=== PATIENT | female | born 1980 | race African-American/Black ===

== ENCOUNTER 2019-01-14 06:05 | Emergency (ER) | payer OTHER ==
[2019-01-14] MEDS ORDERED: Albuterol/Ipratropium NEB.SOL* Albuterol 2.5 MG/Ipratropium 0.5 MG 3 ML INH ONE (06:26)
[2019-01-14 06:55] LABS: Hematocrit 33 % (35-47); Hemoglobin 11.4 g/dL (12.0-16.0); Mean Corpuscular HGB Conc 34 g/dL (31-36); Mean Corpuscular Hemoglobin 33 pg (27-31); Mean Corpuscular Volume 96 fL (80-97); Mean Platelet Volume 8.9 fL (7.4-10.4); Platelet Count 288 10^3/uL (150-450); Red Blood Count 3.47 10^6 /uL (3.70-4.87); Red Cell Distribution Width 12 % (10-15); White Blood Count 5.5 10^3/uL (3.5-10.8)
[2019-01-14 07:07] LABS: ALT 17 U/L (7-52); AST 28 U/L (13-39); Albumin 3.9 g/dL (3.2-5.2); Albumin/Globulin Ratio 1.3 (1-3); Alkaline Phosphatase 52 U/L (34-104); Anion Gap 5 mmol/L (2-11); BUN/Creatinine Ratio 11.7 (8-20); Blood Urea Nitrogen 9 mg/dL (6-24); C Reactive Protein < 1.00 mg/L (<8.01); CO2 Carbon Dioxide 26 mmol/L (22-32); Calcium 9.3 mg/dL (8.6-10.3); Chloride 107 mmol/L (101-111); EGFR African American 101.5 (>60); EGFR Non-African American 83.9 (>60); Globulin 2.9 g/dL (2-4); Glucose 97 mg/dL (70-100); Potassium 3.9 mmol/L (3.5-5.0); Sodium 138 mmol/L (135-145); Total Protein 6.8 g/dL (6.4-8.9)
[2019-01-14] MEDS ORDERED: predniSONE TAB* 50 MG PO ONE (07:47)
[2019-01-14] MEDS ORDERED: Bacitracin OINTMENT* 0.5% 0.5 oz TUBE TOPICAL ONE (07:51)
[2019-01-14 08:14] VITALS: BP 133/69
--- NOTE | 2019-01-14 08:34 | ED ---
Respiratory - HPI Summary HPI Summary: This patient is a 38-year-old female who presents to the ED with shortness of breath 2 days. Patient states she has a history of asthma and takes rescue inhaler daily. She states despite using her rescue inhaler, she does not feel her shortness of breath has improved. She denies any wheezing. Denies any cough or congestion. Denies any cough with production, fevers, sweats, chills. She states she is in no respiratory distress, but feels a mild shortness of breath. She does endorse some "chest tightness". She denies any chest pain or radiation of chest pain. She denies any cardiac history. She states she has been otherwise well. She has used Advair in the past with good relief, but does not have a prescription currently. - History of Current Complaint Chief Complaint: EDShortnessOfBreath Stated Complaint: ASTHMA PER PT Time Seen by Provider: 01/14/19 06:26 Hx Obtained From: Patient Onset/Duration: Sudden Onset Timing: Constant Pain Intensity: 0 Character: Wheezing Sputum Amount: None Sputum Color: Clear Aggravating Factor(s): Nothing Alleviating Factor(s): Nothing Associated Signs and Symptoms: Negative - Allergy/Home Medications Allergies/Adverse Reactions: Allergies Allergy/AdvReac Type Severity Reaction Status Date / Time latex Allergy Hives Verified 01/14/19 06:07 Sulfa (Sulfonamide Allergy Hives Verified 01/14/19 06:07 Antibiotics) Home Medications: Home Medications Albuterol HFA INHALER* 2 puff INH Q6HR PRN 01/14/19 [History Confirmed 01/14/19] PMH/Surg Hx/FS Hx/Imm Hx Previously Healthy: Yes Respiratory History: Reports: Hx Asthma - Immunization History Hx Pertussis Vaccination: No Immunizations Up to Date: Yes Infectious Disease History: No Infectious Disease History: Denies: Traveled Outside the [place] in Last 30 Days - Social History Occupation: Employed Full-time Lives: With Family Alcohol Use: Occasionally Hx Substance Use: No Substance Use Type: Reports: None Hx Tobacco Use: No Smoking Status (MU): Never Smoked Tobacco Review of Systems Constitutional: Negative Negative: Chills, Fatigue, Skin Diaphoresis Positive: Chest Pain. Negative: Palpitations Positive: Shortness Of Breath. Negative: Cough Genitourinary: Negative Positive: no symptoms reported, see HPI Negative: Arthralgia, Myalgia Skin: Negative Neurological: Negative All Other Systems Reviewed And Are Negative: Yes Physical Exam Triage Information Reviewed: Yes Vital Signs On Initial Exam: Initial Vitals Temp Pulse Resp BP Pulse Ox 97.6 F 68 20 121/65 98 01/14/19 06:05 01/14/19 06:05 01/14/19 06:05 01/14/19 06:05 01/14/19 06:05 Vital Signs Reviewed: Yes Appearance: Positive: Well-Appearing, Well-Nourished Skin: Positive: Warm, Skin Color Reflects Adequate Perfusion Head/Face: Positive: Normal Head/Face Inspection Eyes: Positive: EOMI, MARILYN, Conjunctiva Clear Neck: Positive: Supple, No Lymphadenopathy Respiratory/Lung Sounds: Positive: Clear to Auscultation, Breath Sounds Present Cardiovascular: Positive: RRR, Pulses are Symmetrical in both Upper and Lower Extremities Musculoskeletal: Positive: Normal, Strength/ROM Intact Neurological: Positive: Sensory/Motor Intact, Alert, Oriented to Person Place, Time, Speech Normal Psychiatric: Positive: Normal, Affect/Mood Appropriate AVPU Assessment: Alert Diagnostics - Vital Signs Vital Signs Temp Pulse Resp BP Pulse Ox 01/14/19 08:12 98.4 F 93 18 133/69 98 01/14/19 06:23 57 14 98 01/14/19 06:05 97.6 F 68 20 121/65 98 - Laboratory Lab Results: Lab Results 01/14/19 01/14/19 Range/Units 06:36 06:36 WBC 5.5 (3.5-10.8) 10^3/uL RBC 3.47 L (3.70-4.87) 10^6 /uL Hgb 11.4 L (12.0-16.0) g/dL Hct 33 L (35-47) % MCV 96 (80-97) fL MCH 33 H (27-31) pg MCHC 34 (31-36) g/dL RDW 12 (10-15) % Plt Count 288 (150-450) 10^3/uL MPV 8.9 (7.4-10.4) fL Sodium 138 (135-145) mmol/L Potassium 3.9 (3.5-5.0) mmol/L Chloride 107 (101-111) mmol/L Carbon Dioxide 26 (22-32) mmol/L Anion Gap 5 (2-11) mmol/L BUN 9 (6-24) mg/dL Creatinine 0.77 (0.51-0.95) mg/dL Est GFR ( Amer) 101.5 (>60) Est GFR (Non-Af Amer) 83.9 (>60) BUN/Creatinine Ratio 11.7 (8-20) Glucose 97 (70-100) mg/dL Calcium 9.3 (8.6-10.3) mg/dL Total Bilirubin 0.60 (0.2-1.0) mg/dL AST 28 (13-39) U/L ALT 17 (7-52) U/L Alkaline Phosphatase 52 (34-104) U/L Troponin I 0.00 (<0.04) ng/mL C-Reactive Protein < 1.00 (<8.01) mg/L Total Protein 6.8 (6.4-8.9) g/dL Albumin 3.9 (3.2-5.2) g/dL Globulin 2.9 (2-4) g/dL Albumin/Globulin Ratio 1.3 (1-3) Result Diagrams: 01/14/19 06:36 01/14/19 06:36 Lab Statement: Any lab studies that have been ordered have been reviewed, and results considered in the medical decision making process. Disposition - Course Course Of Treatment: Physical examination, patient appears well, nondiaphoretic and nontoxic and appearing. Lungs CTA, RRR. There is no wheezing noted bilaterally, however since patient is complaining of shortness of breath, albuterol nebulizer treatment was ordered. No abdominal tenderness throughout. Labs obtained due to the complaint of chest tightness. Labs are unremarkable including a troponin of 0.00. Chest x-ray shows no acute findings. We'll discharge patient home with Advair, she will continue the use of her rescue inhaler and she was also given a 4 day supply of prednisone. First prednisone given here in the ED. - Diagnoses Provider Diagnoses: SOB (shortness of breath), Asthma exacerbation Discharge ED - Sign-Out/Discharge Documenting (check all that apply): Patient Departure Patient Received Moderate/Deep Sedation with Procedure: No - Discharge Plan Condition: Stable Disposition: HOME Prescriptions: Fluticasone-Salmeterol 250-50* [Advair Diskus 250-50*] 1 puff INH BID #1 diskus predniSONE TAB* [Deltasone TAB*] 50 mg PO DAILY #4 tab MDD 1 Patient Education Materials: Asthma (ED) Referrals: No Primary Care Phys,NOPCP [Primary Care Provider] - Additional Instructions: Advair twice daily Prednisone once daily x 5 days - your next dose is tomorrow morning - Billing Disposition and Condition Condition: STABLE Disposition: Home
[2019-01-14] MEDS ORDERED: Fluticasone-Salmeterol 250-50* DISKUS INH SCH (09:00)
== END 2019-01-14 07:56 | disposition home or self-care (01) ==
LOC: ED 06:05
DX: J45.901 Unspecified asthma with (acute) exacerbation (principal); Z88.2 Allergy status to sulfonamides; Z91.040 Latex allergy status
CPT/HCPCS: 36415; 71046; 80053; 84484; 85027; 86140; 93005; 99283; A9270-GY; J7512